=== PATIENT | male | born 1985 | race African-American/Black ===

== ENCOUNTER 2022-05-04 00:43 | Emergency (ER) | payer SELFPAY ==
[~2022-05-04] VITALS: Ht 182.9 cm; Wt 77.0 kg
[2022-05-04] MEDS ORDERED: TETANUS, DIPHTHERIA, PERTUSSIS VAC/PF 0.5ML (>10YR OLD) IM ONE (01:15)
[2022-05-04] MEDS ORDERED: LIDOCAINE HCL 1% 20ML VIAL (Pyxis) INJ INFIL ONE (01:30)
[2022-05-04] MEDS ORDERED: DEXTROSE 50% WATER 50ML SYRINGE IV NR (01:30)
[2022-05-04] MEDS ORDERED: SODIUM CHLORIDE 0.9% 1,000 ML IV ONE (01:30)
[2022-05-04] MEDS ORDERED: CEFAZOLIN 1000MG PREMIX 50 ML IV ONE (01:30)
[2022-05-04 01:50] LABS: BASOPHILS % 0.5 % (0.0-2.0); EOSINOPHILS % 2.1 % (0.0-5.0); HEMATOCRIT. 39.5 % (42.0-52.0); LYMPHOCYTES % 16.2 % (20.0-50.0); MEAN CORPUSCULAR HEMOGLOBIN 29.2 pg (28.0-32.0); MEAN CORPUSCULAR VOLUME 88.5 fL (80.0-94.0); MEAN PLATELET VOLUME 6.5 fl (7.4-10.4); MONOCYTES % 6.2 % (2.0-8.0); PLATELET 279 x1000/uL (130-400); RED BLOOD CELL COUNT 4.47 mill/uL (4.7-6.1); RED CELL DISTRIBUTION WIDTH 14.8 % (11.6-14.6)
[2022-05-04 01:58] LABS: CHLORIDE 107 mEq/L (98-107)
[2022-05-04 02:07] LABS: ETHANOL BLOOD 138 mg/dL
[2022-05-04 04:08] LABS: HEMATOCRIT 33.1 % (42.0-52.0); MEAN CORPUSCULAR HEMOGLOBIN 29.3 pg (28.0-32.0); MEAN CORPUSCULAR VOLUME 87.9 fL (80.0-94.0); PLATELET 251 x1000/uL (130-400); RED BLOOD CELL COUNT 3.76 mill/uL (4.7-6.1); RED CELL DISTRIBUTION WIDTH 14.8 % (11.6-14.6)
[2022-05-04 07:00] VITALS: BP 122/78
== END 2022-05-04 07:36 | disposition home or self-care (01) ==
LOC: ER 00:43
DX: S01.111A Laceration without foreign body of right eyelid and periocular area, initial encounter (principal); S01.312A Laceration without foreign body of left ear, initial encounter; S01.511A Laceration without foreign body of lip, initial encounter; F10.129 Alcohol abuse with intoxication, unspecified; Y90.6 Blood alcohol level of 120-199 mg/100 ml; Y08.89XA Assault by other specified means, initial encounter; Y93.89 Activity, other specified; Y92.811 Bus as the place of occurrence of the external cause
CPT/HCPCS: 12013; 36415; 70450; 70486; 71045; 72125; 72170; 80053; 80320; 82962; 83690; 85025; 85027; 86850; 86900; 86901; 90471; 90715; 96361; 96365; 96375; 99291; J0690; J3490; J7030; G0480